=== PATIENT | female | born 1960 | race African-American/Black ===

== ENCOUNTER 2017-01-01 19:04 | Emergency (ER) | payer OTHER ==
[~2017-01-01] VITALS: Ht 170.2 cm; Wt 98.0 kg
[~2017-01-01 19:04] MED LIST: ALDACTONE; COUMADIN 2.5MG2.5 M1 PO; COUMADIN 5 MG TA5 M1 PO; CYCLOBENZAPRINE5 MG PO; EXFORGE; EXFORGE PO; KAPIDEX60 MG PO; METFORMIN; NORCO 5-325 TA1 EACH PO; PATANASE30.5 GM NS; PERCOCET 5-3251 EACH PO; PROVENTIL IH; STARLIX; SYMBICORT160 MCG/4. INH; TRAMADOL 50 MG50 MG PO; ZOFRAN ODT4 MG PO; ZYRTEC10 M1 PO; ZYRTEC10 M2 PO
[2017-01-01] MEDS ORDERED: METFORMIN HCL500 MG PO (19:20)
[2017-01-01 19:34] LABS: ABSOLUTE NEUTROPHILS 5.5 thou/uL (1.4-8.2); BASOPHILS 0.5 % (0.0-2.0); EOSINOPHILS 0.9 % (0.0-3.0); HEMATOCRIT 39.5 % (37.0-47.0); HEMOGLOBIN 12.8 gm/dL (12.0-15.0); LYMPHOCYTES 22.9 % (24.0-44.0); MCH 26.9 pg (26.0-34.0); MCHC 32.5 g/dL (28.0-37.0); MCV 82.7 fL (80.0-100.0); MONOCYTES 5.1 % (1.0-8.0); PLATELET COUNT 222 thou/uL (150-400); POLYS 70.6 % (36.0-66.0); RBC 4.78 mil/uL (4.20-5.00); RDW 14.7 % (10.5-14.5); WBC 7.8 thou/uL (4.0-11.0)
[2017-01-01 19:37] LABS: MANUAL DIFF NO
[2017-01-01 19:49] LABS: CALCIUM 9.2 mg/dL (8.5-10.1); CREATININE 1.6 mg/dL (0.6-1.3); POTASSIUM 3.6 mmol/L (3.5-5.1)
[2017-01-01 19:53] LABS: ALBUMIN 3.6 g/dL (3.4-5.0); TOTAL BILIRUBIN 0.3 mg/dL (<0.1-1.0); TOTAL PROTEIN 7.3 g/dL (6.4-8.2)
[2017-01-01 19:56] LABS: PROTIME 30.8 Seconds (9.3-11.4)
[2017-01-01] MEDS ORDERED: COMPAZINE10 MG PO (21:49)
[2017-01-01 22:02] VITALS: BP 114/65
== END 2017-01-01 22:04 | disposition home or self-care (01) ==
LOC: ER 19:04
PROVIDERS: Emergency Medicine
DX: K52.89 Other specified noninfective gastroenteritis and colitis (principal); E86.0 Dehydration; I10 Essential (primary) hypertension; Z90.49 Acquired absence of other specified parts of digestive tract; E11.9 Type 2 diabetes mellitus without complications; K21.9 Gastro-esophageal reflux disease without esophagitis; M10.9 Gout, unspecified; Z91.018 Allergy to other foods; Z88.2 Allergy status to sulfonamides; F10.99 Alcohol use, unspecified with unspecified alcohol-induced disorder

== ENCOUNTER 2017-01-04 04:11 | Inpatient (IN) | payer OTHER ==
[~2017-01-04] VITALS: Ht 172.7 cm; Wt 98.0 kg
[2017-01-04] VITALS (7 sets, daily range): BP systolic 109–144; BP diastolic 61–83
[~2017-01-04 04:11] MED LIST changes: +COMPAZINE10 MG PO; +METFORMIN HCL500 MG PO
[2017-01-04 04:45] LABS: ABSOLUTE NEUTROPHILS 5.1 thou/uL (1.4-8.2); BASOPHILS 0.7 % (0.0-2.0); EOSINOPHILS 0.7 % (0.0-3.0); HEMATOCRIT 37.8 % (37.0-47.0); HEMOGLOBIN 12.4 gm/dL (12.0-15.0); LYMPHOCYTES 22.4 % (24.0-44.0); MCHC 32.9 g/dL (28.0-37.0); MCV 82.1 fL (80.0-100.0); MONOCYTES 6.8 % (1.0-8.0); PLATELET COUNT 224 thou/uL (150-400); POLYS 69.4 % (36.0-66.0); RBC 4.61 mil/uL (4.20-5.00); RDW 14.6 % (10.5-14.5); WBC 7.3 thou/uL (4.0-11.0)
[2017-01-04 04:49] LABS: MANUAL DIFF NO
[2017-01-04 05:02] LABS: POTASSIUM 3.2 mmol/L (3.5-5.1)
[2017-01-04 05:08] LABS: APTT 41.8 Seconds (24.5-32.8); PROTIME 66.2 Seconds (9.3-11.4)
[2017-01-04 05:13] LABS: ALBUMIN 3.4 g/dL (3.4-5.0); CALCIUM 9.2 mg/dL (8.5-10.1); CREATININE 1.4 mg/dL (0.6-1.3); TOTAL BILIRUBIN 0.3 mg/dL (<0.1-1.0); TOTAL PROTEIN 7.2 g/dL (6.4-8.2)
[2017-01-04 05:14] LABS: INR 6.4
[2017-01-04 17:11] LABS: PROTIME 27.4 Seconds (9.3-11.4)
[2017-01-04 17:16] LABS: INR 2.6
[2017-01-05 04:00] VITALS: BP 133/82
[2017-01-05 06:47] LABS: INR 2.2; PROTIME 23.3 Seconds (9.3-11.4)
[2017-01-05 06:54] LABS: ALBUMIN 3.1 g/dL (3.4-5.0); CALCIUM 8.6 mg/dL (8.5-10.1); CREATININE 1.2 mg/dL (0.6-1.0); MAGNESIUM 1.5 mg/dL (1.8-2.4); POTASSIUM 3.5 mmol/L (3.5-5.1); TOTAL BILIRUBIN 0.3 mg/dL (<0.1-1.0); TOTAL PROTEIN 6.4 g/dL (6.4-8.2)
[2017-01-05 07:36] VITALS: BP 109/68
[2017-01-05 12:12] VITALS: BP 120/75
[2017-01-05 15:23] VITALS: BP 127/82
[2017-01-05 21:30] VITALS: BP 120/68
[2017-01-06 04:30] VITALS: BP 130/72
[2017-01-06 05:24] LABS: HEMATOCRIT 33.6 % (37.0-47.0); MCH 26.9 pg (26.0-34.0); MCHC 32.7 g/dL (28.0-37.0); MCV 82.2 fL (80.0-100.0); RBC 4.09 mil/uL (4.20-5.00); RDW 14.6 % (10.5-14.5); WBC 9.9 thou/uL (4.0-11.0)
[2017-01-06 05:47] LABS: CALCIUM 8.5 mg/dL (8.5-10.1); CREATININE 1.1 mg/dL (0.6-1.0); MAGNESIUM 1.3 mg/dL (1.8-2.4); POTASSIUM 3.3 mmol/L (3.5-5.1)
[2017-01-06 14:12] LABS: INR 1.5; PROTIME 15.3 Seconds (9.3-11.4)
[2017-01-06 16:23] VITALS: BP 124/70
[2017-01-06 20:00] VITALS: BP 129/78
[2017-01-07 04:00] VITALS: BP 126/82; BP 135/80
[2017-01-07 06:11] LABS: INR 1.2; PROTIME 12.4 Seconds (9.3-11.4)
[2017-01-07 07:38] VITALS: BP 126/83
[2017-01-07 15:59] VITALS: BP 129/79
[2017-01-07 20:00] VITALS: BP 121/76
[2017-01-08 06:21] LABS: INR 1.1; PROTIME 11.3 Seconds (9.3-11.4)
[2017-01-08 07:14] VITALS: BP 136/81
[2017-01-08 16:37] VITALS: BP 149/88
== END 2017-01-09 02:12 | disposition short-term general hospital (02) | DRG 65 ==
LOC: ER 04:11 → 4E 05:31 → EROBS 05:31 → 4E 07:40
PROVIDERS: Emergency Medicine; Hospitalist; Internal Medicine; Nurse Practitioner
DX: I62.00 Nontraumatic subdural hemorrhage, unspecified (principal); G81.94 Hemiplegia, unspecified affecting left nondominant side; N17.9 Acute kidney failure, unspecified; A08.4 Viral intestinal infection, unspecified; G43.909 Migraine, unspecified, not intractable, without status migrainosus; I10 Essential (primary) hypertension; E11.9 Type 2 diabetes mellitus without complications; K21.9 Gastro-esophageal reflux disease without esophagitis; M10.9 Gout, unspecified; E87.6 Hypokalemia; Z86.711 Personal history of pulmonary embolism; Z90.49 Acquired absence of other specified parts of digestive tract; Z88.2 Allergy status to sulfonamides; Z91.018 Allergy to other foods; Z82.49 Family history of ischemic heart disease and other diseases of the circulatory system; Z83.3 Family history of diabetes mellitus
CPT/HCPCS: 10183

== ENCOUNTER → 2017-08-16 | Outpatient (CLI) | payer OTHER ==
--- NOTE | ~2017-08-16 | CNG ---
[facility] [place] [address] CYTO-NONGYN REPORT PROCEDURE Name: GILDA STORY Room #: REG [facility].#: [id number] Admission: 08/16/17 Date of : 56 Discharge: Report #: [id number] Path Case #: [id number] CYTOPATHOLOGY REPORT COLLECTION DATE: 08/16/2017 RECEIVED DATE: 08/16/2017 SUBMITTING PHYS: Dr. Irving Newman OTHER PHYS: Dr. Antonina Cortes CLINICAL HISTORY: Left thyroid nodule. SPECIMEN(S) RECEIVED: A.US guided Fine needle aspiration, Left thyroid nodule * * * * * * * * * * * * FINAL DIAGNOSIS: A. Thyroid, Left thyroid nodule, US guided Fine needle aspiration: BETHESDA CATEGORY II. SPECIMEN CONSISTS OF FOLLICULAR CELLS, FEW WITH HURTHLE CELL CHANGE, ABUNDANT HEMOSIDERIN-LADEN MACROPHAGES, COLLOID, AND BLOOD, FAVOR ADENOMATOID NODULE. COMMENT: Examination shows a mixed follicular architecture with Hurthle cell change in a few, macrophages as well as watery colloid. Nuclear features of papillary thyroid carcinoma are not identified. Based on the morphology, an adenomatoid nodule is favored. The differential diagnosis includes a mixed macro-micro follicular adenoma. Nature of the sample precludes evaluation for a follicular carcinoma. Sample represents a minute portion of a larger lesion and may have sampling bias. Clinical correlation is suggested. (IUV; 08/17/17) PATHOLOGIST: Claudia Nguyen M.D. REPORT ELECTRONICALLY SIGNED BY: Claudia Nguyen M.D. DATE/TIME: 08/17/2017 15:55 * * * * * * * * * * * * GROSS PATHOLOGY: A. US guided Fine needle aspiration, Left thyroid nodule: The specimen is labeled "Gilda Story" and consists of three fixed slides, three air dried slides. Twenty-five mL of red fluid in fixative from the needle rinse is also submitted and one ThinPrep slide was prepared. Twenty mL of clear colorless fluid in formalin was also received and a formalin fixed cell block was prepared from this material. (clt 08.16.2017) Also received is the RNARetain vial which will be held for molecular studies if needed. [address] [address] CYTO-NONGYN REPORT PROCEDURE Name: GILDA STORY [id number] Admission: 08/16/17 Date of : 56 Discharge: Report #: [id number] Path Case #: [id number] DIGITAL PRODUCT SPECIALIST(S): FREYA Priest(ASCP) INITIAL CPT CODE(S): A; 26437, 70359 Professional services performed by [facility] at [address] , [place] [address] Technical services performed by [facility] at [address] [place] [address]., [address], [place] [address]. [facility], [address] [place] [address] PHONE: [phone] DIRECTOR: Shay Cota M.D. * * * END OF REPORT * * *
== END | disposition home or self-care (01) ==
LOC: ULTRA 08:30
DX: E04.2 Nontoxic multinodular goiter (principal)

== ENCOUNTER → 2017-12-23 | Outpatient (CLI) | payer OTHER ==
[~2017-12-23] MED LIST changes: +SENNA8.6 MG PO
== END ==
LOC: RAD 11:46
DX: Z12.31 Encounter for screening mammogram for malignant neoplasm of breast (principal)

== ENCOUNTER 2018-04-27 17:21 | Emergency (ER) | payer OTHER ==
[~2018-04-27] VITALS: Ht 172.7 cm; Wt 85.3 kg
[~2018-04-27 17:21] MED LIST changes: -SENNA8.6 MG PO
[2018-04-27 17:52] VITALS: BP 149/81
[2018-04-27] MEDS ORDERED: SENNA8.6 MG PO (19:23)
[2018-04-27] MEDS ORDERED: NORCO 5-325 TA1 EACH PO (19:23)
== END 2018-04-27 19:42 | disposition home or self-care (01) ==
LOC: ER 17:21
DX: S52.501A Unspecified fracture of the lower end of right radius, initial encounter for closed fracture (principal); S62.011A Displaced fracture of distal pole of navicular [scaphoid] bone of right wrist, initial encounter for closed fracture; W01.0XXA Fall on same level from slipping, tripping and stumbling without subsequent striking against object, initial encounter; Y93.89 Activity, other specified; Y92.89 Other specified places as the place of occurrence of the external cause; Y99.8 Other external cause status; I10 Essential (primary) hypertension; E11.9 Type 2 diabetes mellitus without complications; M10.9 Gout, unspecified; K21.9 Gastro-esophageal reflux disease without esophagitis; Z90.49 Acquired absence of other specified parts of digestive tract; Z88.2 Allergy status to sulfonamides; Z91.02 Food additives allergy status

== ENCOUNTER → 2019-05-01 | Outpatient (CLI) | payer OTHER ==
[~2019-05-01] MED LIST changes: +SENNA8.6 MG PO
== END ==
LOC: BC 12:12
DX: Z12.31 Encounter for screening mammogram for malignant neoplasm of breast (principal)

== ENCOUNTER → 2020-05-29 | Outpatient (CLI) | payer OTHER | LOC: BC 13:50 | PROVIDERS: ATTEND Internal Medicine | DX: Z12.31 Encounter for screening mammogram for malignant neoplasm of breast (principal) ==

== ENCOUNTER 2021-05-06 01:32 | Inpatient (IN) | payer BC ==
[~2021-05-06] VITALS: Ht 175.3 cm; Wt 91.6 kg
[2021-05-06] VITALS (7 sets, daily range): BP systolic 108–129; BP diastolic 49–70
[2021-05-06] MEDS ORDERED: AMLODIPINE-VAL1 EAC3 PO (02:02)
[2021-05-06] MEDS ORDERED: HYDROCHLOROTH12.5 M2 PO (02:02)
[2021-05-06] MEDS ORDERED: OZEMPIC0.25 MG/0. SUBQ (02:03)
[2021-05-06] MEDS ORDERED: METFORMIN HCL500 M3 PO (02:04)
[2021-05-06] MEDS ORDERED: JANTOVEN3 MG PO (02:05)
[2021-05-06 02:38] LABS: ABSOLUTE NEUTROPHILS 9.8 thou/uL (1.4-8.2); BASOPHILS 0.7 % (0.0-2.0); EOSINOPHILS 0.1 % (0.0-3.0); HEMOGLOBIN 11.1 gm/dL (12.0-15.0); LYMPHOCYTES 22.8 % (24.0-44.0); MCHC 31.7 g/dL (28.0-37.0); MCV 85.2 fL (80.0-100.0); MONOCYTES 5.4 % (1.0-8.0); PLATELET COUNT 229 thou/uL (150-400); RBC 4.11 mil/uL (4.20-5.00); RDW 14.7 % (10.5-14.5); WBC 13.7 thou/uL (4.0-11.0)
[2021-05-06 02:41] LABS: ANION GAP 24 mmol/L (7-16); BUN 54 mg/dL (7-18); CALCIUM 9.2 mg/dL (8.5-10.1); CHLORIDE 99 mmol/L (98-107); CO2 16 mmol/L (21-32); CREATININE 6.7 mg/dL (0.6-1.0); GLUCOSE 163 mg/dL (74-106); POTASSIUM 4.9 mmol/L (3.5-5.1); SODIUM 139 mmol/L (136-145)
[2021-05-06 02:54] LABS: ALBUMIN 3.4 g/dL (3.4-5.0); DIRECT BILIRUBIN 0.4 mg/dL (<0.1-0.2); LIPASE 266 U/L (73-393); TOTAL BILIRUBIN 0.8 mg/dL (0.2-1.0); TOTAL PROTEIN 7.6 g/dL (6.4-8.2); TROPONIN-I <0.06 ng/mL (<0.06)
[2021-05-06 04:49] LABS: APTT 38.4 Seconds (24.5-32.8); INR 3.73; PROTIME 38.2 Seconds (10.5-12.1)
[2021-05-06 05:53] LABS: URINE BILIRUBIN NEGATIVE (Negative); URINE BLOOD 1+ (Negative); URINE CLARITY SL CLOUDY; URINE COLOR YELLOW; URINE GLUCOSE-RANDOM* 2+ (Negative); URINE KETONES 1+ (Negative); URINE LEUKOCYTES-REFLEX NEGATIVE (Negative); URINE NITRITE-REFLEX NEGATIVE (Negative); URINE PROTEIN (DIPSTICK) 2+ (Negative); URINE SPECIFIC GRAVITY 1.025 (1.005-1.035); URINE UROBILINOGEN 0.2 E.U./dl (0.2-1.0)
[2021-05-06 06:06] LABS: CALCIUM 8.9 mg/dL (8.5-10.1); CREATININE 6.5 mg/dL (0.6-1.0); PHOSPHORUS 7.3 mg/dL (2.5-4.9); POTASSIUM 4.9 mmol/L (3.5-5.1)
[2021-05-06 06:08] LABS: CASTS None Seen /LPF (None Seen); SQUAMOUS 0-3 Few /LPF (0-3)
[2021-05-06 06:09] LABS: CHOLESTEROL 89 mg/dL (<200); HDL CHOLESTEROL 30 mg/dL (>40); LDL CHOLESTEROL 15 mg/dL (<100); TRIGLYCERIDE 223 mg/dL (<150); VLDL 45 mg/dL (<40)
[2021-05-06 06:09] LABS: AMORPHOUS URATES Moderate /LPF (None Seen); URINE RBC 1-2 Rare /HPF (NONE SEEN); URINE WBC-REFLEX 0-5 Rare /HPF (0-5)
[2021-05-06 06:11] LABS: SERUM ASSESSMENT Clear
--- NOTE | 2021-05-06 07:49 | EKG ---
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: malick : 1960 Requested By: Sonia Munoz Order Number: [id number] MD: Stephen Duarte Measurements Intervals Mystic Rate: 100 P: 33 OR: 124 QRS: 13 QRSD: 85 T: 86 QT: 379 QTc: 489 Interpretive Statements Sinus tachycardia RSR' in V1 or V2, right VCD or RVH Borderline prolonged QT interval Compared to ECG 04/03/2015 15:55:45 RSR' in V1 or V2 now present Sinus rhythm no longer present ST (T wave) deviation no longer present Electronically Signed On 05-06-2021 7:49:30 CDT by Stephen Duarte [email or web address] <ELECTRONICALLY SIGNED> By: Stephen Duarte MD, FAC 05/06/21 0749 0254 [id number] Stephen Duarte MD, [facility] /EPI
--- NOTE | 2021-05-06 09:43 | NUR ---
dr freedman on floor when critical lab value called
[2021-05-06 11:12] LABS: ALBUMIN 2.7 g/dL (3.4-5.0); DIRECT BILIRUBIN 0.5 mg/dL (<0.1-0.2); TOTAL BILIRUBIN 0.9 mg/dL (0.2-1.0); TOTAL PROTEIN 6.1 g/dL (6.4-8.2)
--- NOTE | 2021-05-06 11:19 | NUR ---
MESSAGED DR MAST RE: LACTIC ACID VALUE 4.7
--- NOTE | 2021-05-06 17:04 | NUR ---
PER DR GUPTA, PT TO REMAIN ON SODIUM BICARB AT 80MLS/HR UNTIL MORNING LABS ARE DRAWN. PLEASE UPDATE PHYSICIAN OIL HEATERMAN IF RESULTS CRITICAL.
[2021-05-07 01:24] LABS: GLYCOHEMOGLOBIN (HGB A1C) 7.6 % (4.8-5.6)
[2021-05-07 04:45] VITALS: BP 129/77
[2021-05-07 05:47] LABS: HEMATOCRIT 30.6 % (37.0-47.0); HEMOGLOBIN 10.1 gm/dL (12.0-15.0); MCH 27.6 pg (26.0-34.0); MCHC 32.9 g/dL (28.0-37.0); RBC 3.64 mil/uL (4.20-5.00); RDW 14.6 % (10.5-14.5); WBC 6.6 thou/uL (4.0-11.0)
--- NOTE | 2021-05-07 05:48 | NUR ---
Pt. stated she slept fair during the night. Denies any pain. No nausea or vomiting. Up with SBA to commode. She reported dizziness when getting up which she said she has vertigo.Kept NPO per order. IV fluids infusing.
[2021-05-07 06:10] LABS: PROTIME 85.9 Seconds (10.5-12.1)
[2021-05-07 06:24] LABS: ALBUMIN 2.6 g/dL (3.4-5.0); DIRECT BILIRUBIN 0.7 mg/dL (<0.1-0.2); PHOSPHORUS 3.1 mg/dL (2.5-4.9); TOTAL PROTEIN 5.4 g/dL (6.4-8.2)
[2021-05-07 06:27] LABS: INR 8.74
[2021-05-07 06:35] LABS: CREATININE 7.9 mg/dL (0.6-1.0); POTASSIUM 3.3 mmol/L (3.5-5.1)
--- NOTE | 2021-05-07 06:38 | NUR ---
Critical INR of 8.7 reported to Rodo Lord NP. No active signs of bleeding. Order received for Vit. K SQ x1,
[2021-05-07 07:26] VITALS: BP 128/69
--- NOTE | 2021-05-07 08:25 | NUR ---
Assess due to RD consult received. Admit with n/v/d for several weeks, lactic acidosis, acute renal failure possibly reaction from new medication that was started. Also has significant elevated LFT, followed by GI and workup in progress. Held NPO. Nutrition screening risk indicated severe wt loss 24-33 lb range. Nabicarb administration with renal managing fluids. Wts trending back up 4 lb. Will followup again in 1-2 days for timely diet advance and tolerance to oral intake, initiate any appropriate nutrition interventions.
[2021-05-07 10:08] LABS: HAV IgM AB (ANTI-HAV IgM) Negative (Negative); HEPATITIS B SURFACE AG Negative (Negative); HEPATITIS C VIRUS AB 0.2 (0.0-0.9)
--- NOTE | 2021-05-07 11:05 | NUR ---
INITIAL ASSESSMENT: SW reviewed chart and spoke with nursing and attending physician. Pt was admitted from home due to acute renal failure/vomiting/weakness. Pt with elevated LFTs and INR. Pt is on IV abx. Pt has been vaccinated for COVID. SW spoke with pt via phone. Introduced role of SW. Pt is alert/orientated x 4. Pt reports she lives alone in an apt. Pt has several steps to get into her apt and then no steps inside. Prior to admission, pt was independent with ADLS. Pt states lately she has been weak and has been using furniture for balance. Pt's dtr lives within the same apt complex and is available to assist as needed. Pt's son and dtr-in-law are also involved and able to assist as needed. No hx of services or post-acute placement. Pt's PCP is Dr. Antonina Cortes. Pt to be transferred off 3W when a bed becomes available on another unit. SW is following to assist as needed with discharge planning.
[2021-05-07 15:08] VITALS: BP 132/84
--- NOTE | 2021-05-07 19:53 | NUR ---
DAY SHIFT REVIEW: PT HAS POOR URINE OUTPUT. 300ML FOR DAY. PT STATES HER N/V IS COMPLETELY GONE. WAS ABLE TO ADVANCE DIET TO CLEARS W/O COMPLAINTS OR ISSUE. PT USES CALL LIGHT APPROPRIATELY, NO OTHER CONCERNS OR COMPLAINTS DURING SHIFT.
[2021-05-07 20:06] LABS: IgA 308 mg/dL (87-352); IgG 915 mg/dL (586-1602); IgM 38 mg/dL (26-217)
[2021-05-07 20:20] VITALS: BP 137/81
[2021-05-08 05:00] VITALS: BP 125/67
[2021-05-08 06:25] LABS: ALBUMIN 2.6 g/dL (3.4-5.0); CREATININE 9.7 mg/dL (0.6-1.0); PHOSPHORUS 2.6 mg/dL (2.5-4.9); POTASSIUM 3.8 mmol/L (3.5-5.1)
--- NOTE | 2021-05-08 07:30 | NUR ---
PROGRESS PT A/OX 4 UP WITH SBA D/T EQUIPMENT. NAUSEA REMAINS AND PT TAKING ZOFRAN PRN WITH SOME EFFECT. ACIDOSIS DX AND SODIUM BICARB INFUSING ORDERED. ACCUCHECKS AND SSI CONTINUE.
[2021-05-08 07:43] VITALS: BP 144/92
[2021-05-08 08:14] LABS: INR 1.4
[2021-05-08 08:25] LABS: ALBUMIN 2.8 g/dL (3.4-5.0); DIRECT BILIRUBIN 1.1 mg/dL (<0.1-0.2); TOTAL BILIRUBIN 1.6 mg/dL (0.2-1.0); TOTAL PROTEIN 5.4 g/dL (6.4-8.2)
[2021-05-08 11:30] VITALS: BP 137/85
[2021-05-08 14:07] LABS: COMPLEMENT-C3 83 mg/dL (82-167); COMPLEMENT-C4 19 mg/dL (12-38)
--- NOTE | 2021-05-08 14:57 | NUR ---
SW reviewed chart and spoke with nursing and attending physician. Pt is on IV abx. Pt's diet is slowly being advanced. Pt to have kidney bx tomorrow. Pt to transfere off of 3W when a bed becomes available on another unit. [facility] is following to assist as needed with discharge planning.
[2021-05-08 15:37] VITALS: BP 135/88
[2021-05-08 19:07] LABS: GLOBULIN TOTAL 2.4 g/dL (2.2-3.9); M-SPIKE Not Observed g/dL (Not Observed)
[2021-05-08 20:00] VITALS: BP 140/80
[2021-05-09 00:44] VITALS: BP 139/85
[2021-05-09 03:16] LABS: ALBUMIN 2.4 g/dL (3.4-5.0); CALCIUM 7.8 mg/dL (8.5-10.1); CREATININE 10.8 mg/dL (0.6-1.0); PHOSPHORUS 2.5 mg/dL (2.6-4.7); POTASSIUM 3.6 mmol/L (3.5-5.1)
--- NOTE | 2021-05-09 07:19 | NUR ---
progress pt a/o x4 up with sba to bsc. voiding in moderate quantities, had one small emesis and nausea relieved with zofran. lab values still unstable but ivf's infusing awaiting send out labs is following closely. did not sleep well expressed desire to transfer off unit so she could have visitors.
[2021-05-09 07:32] VITALS: BP 141/86
[2021-05-09 09:08] LABS: KAPPA FREE LIGHT CHAINS 131.2 mg/L (3.3-19.4); KAPPA/LAMBDA RATIO 1.69 (0.26-1.65); LAMBDA FREE LIGHT CHAINS 77.6 mg/L (5.7-26.3)
[2021-05-09 10:08] LABS: ANA INTERPRETATION Negative (Negative)
[2021-05-09 11:51] VITALS: BP 141/88
--- NOTE | 2021-05-09 14:15 | NUR ---
SW reviewed chart and spoke with nursing and attending physician. Pt remains on IV abx. LFTs and INR checked daily. No weekend discharge planned. Pt to transfer off of 3W when a bed becomes available. [facility] is following to assist as needed with discharge planning.
[2021-05-09 14:20] VITALS: BP 152/95
--- NOTE | 2021-05-09 15:29 | NUR ---
Pt transfered from 3W this afternoon. Pt remains on IV abx. LFTs and INR checked daily. No weekend discharge planned. SW is following to assist as needed with discharge planning.
--- NOTE | 2021-05-09 17:02 | NUR ---
PT RECEIVED IN TRANSFER TO [facility] ALERT AND IN NO DISTRESS. PT STATES SHE'S FEELING BETTER BUT STILL HAVING SOME INTERMITTENT NAUSEA. ABLE TO EAT SOME SM AMTS. NO C/O PAIN. URINE OUTPUT GOOD.
[2021-05-09 19:53] VITALS: BP 140/85
--- NOTE | 2021-05-10 04:46 | NUR ---
patient aox4 makes needs known. patient denied nausea/ vomit.fall precaution in place d/t hx. of sycopy. . patient in bed asleep at this time breathing regular and unlaboured.
[2021-05-10 06:43] LABS: CALCIUM 8.2 mg/dL (8.5-10.1); POTASSIUM 3.6 mmol/L (3.5-5.1)
[2021-05-10 06:44] LABS: CREATININE 11.9 mg/dL (0.6-1.0)
[2021-05-10 06:47] LABS: ALBUMIN 2.4 g/dL (3.4-5.0); PHOSPHORUS 3.4 mg/dL (2.6-4.7)
[2021-05-10 07:15] VITALS: BP 150/94
--- NOTE | 2021-05-10 14:55 | NUR ---
PT IS A&O*4, ROOM AIR, NO PAIN, GET UP BY JASON. AQ CHECK AND NSR ON TELE. WILL FOLLOW ORDERS AND MONITOR LAB VALUES.
[2021-05-10 15:36] VITALS: BP 144/92
[2021-05-10 19:21] VITALS: BP 142/96
--- NOTE | 2021-05-11 03:51 | NUR ---
patient had emesis x1. patient refused nausea medicine. patient denied pain or discomfort.patient uses bedside commode. fall precaution in place. patient in bed asleep at this time breathing regular and unlaboured.
[2021-05-11 06:14] LABS: ALBUMIN 2.3 g/dL (3.4-5.0); CALCIUM 7.9 mg/dL (8.5-10.1); CREATININE 12.5 mg/dL (0.6-1.0); MAGNESIUM 1.5 mg/dL (1.8-2.4); POTASSIUM 3.5 mmol/L (3.5-5.1); TOTAL BILIRUBIN 0.6 mg/dL (0.2-1.0); TOTAL PROTEIN 5.2 g/dL (6.4-8.2)
--- NOTE | 2021-05-11 13:27 | NUR ---
Pt is AXOX4. Pt is in active liver failure with AST of 111 and ALT of 547.Dr Gutierrez ordered a consult with Dr. Newman and IR for a kidney biopsy and temporary Dialysis Cath. BUN of 49 and Creat of 49. Pt is a ACHS with a 169 for breakfast and a 175 at lunch. She has +1 pitting edema on BLE. She remains on RA. Lungs are clear bowels sounds are hypoactive. Last BM was 05/08/21. She has an IV running in right foream arm running at 80ml/hour along with AXB. Running NS on tele. Fall precautions in place. Call light within reach. Will monitor until end of shift.
[2021-05-11 13:39] LABS: PROT/CREAT RATIO 1.9; URINE CREATININE-RANDOM* 23.3 mg/dL; URINE PROTEIN-RANDOM* 43.6 mg/dL (<11.9)
[2021-05-11 19:04] VITALS: BP 140/87
--- NOTE | 2021-05-12 02:35 | NUR ---
PT CARE ASSUMED WITH PT IN BED WATCHING TV AT 1900.PT IS A/O X4.PT IS UP TO BSC STANDBY ASSIST.PT IS STRICT I AND O.PT IS ACCUCHECK ACHS.PT NPO FROM MIDNIGHT FOR KIDNEY BIOPSY TODAY.IV ACCESS IN RT AC WITH 0.45NS AT 80CC/HR.WILL CONTINUE TO MONITOR PER POC
[2021-05-12 04:04] VITALS: BP 146/86
[2021-05-12 05:25] LABS: HEMATOCRIT 26.5 % (37.0-47.0); HEMOGLOBIN 8.9 gm/dL (12.0-15.0); MCH 27.8 pg (26.0-34.0); MCHC 33.5 g/dL (28.0-37.0); MCV 82.8 fL (80.0-100.0); RBC 3.2 mil/uL (4.20-5.00); RDW 15.1 % (10.5-14.5); WBC 7.5 thou/uL (4.0-11.0)
[2021-05-12 05:55] LABS: ALBUMIN 2.2 g/dL (3.4-5.0); CALCIUM 8.5 mg/dL (8.5-10.1); MAGNESIUM 1.6 mg/dL (1.8-2.4); POTASSIUM 3.5 mmol/L (3.5-5.1); TOTAL BILIRUBIN 0.5 mg/dL (0.2-1.0); TOTAL PROTEIN 5.6 g/dL (6.4-8.2)
[2021-05-12 05:57] LABS: CREATININE 13.6 mg/dL (0.6-1.0)
[2021-05-12 06:57] VITALS: BP 159/88
--- NOTE | 2021-05-12 11:51 | NUR ---
PT IS TO HAVE KIDNEY BIOPSY AND TEMP DIALYSIS CATHETER PLACE TODAY. CM FOLLOWING REGARDING DC PLANNING.
--- NOTE | 2021-05-12 13:03 | NUR ---
Patient was found on the floor at 1220. Patient denied pain and had no open lesions or new wounds noted. All limbs were intact without deformity. Patient denied pain. Vitals were stable; no new findings were discovered upon post fall reassessment. Provider was paged and spoken to; no new orders except to watch patient closely. Patient was checked on approx. 15 minutes prior to fall for incontinence; bed light was green. Bed was re-zeroed prior to getting patient back in bed. Frequent monitoring reinforced on patient. Post fall assessment due at 1320
[2021-05-12 16:39] VITALS: BP 156/95
--- NOTE | 2021-05-12 19:27 | NUR ---
PATIENT ALERT AND ORINTED X4, ON ROOM AIR, SBA, VITAL SIGNS STABLE, AND AFBREILE. CALL LIGHT WITH IN REACH, WILL CONTINUE TO MONITOR.
[2021-05-12 20:30] VITALS: BP 151/91
--- NOTE | 2021-05-13 02:11 | NUR ---
PT CARE ASSUMED WITH PT IN BED WATCHING TV.PT IS A/O X4.PT IS UP WITH STANDBY ASSIST TO THE BSC.PT IS ACCUCHECK ACHS AND NPO FROM MIDNIGHT FOR KIDNEY BIOPSY AND TEMPORARY DIALYSIS ACCESS.IV ACCESS IN RT AC WITH D5 0.45NS AT 80CC/HR.PT C/O NAUSEA AND MANAGED WITH PRN COMPAZINE.WILL CONTINUE TO MONITOR
[2021-05-13 05:54] LABS: HEMATOCRIT 27.5 % (37.0-47.0); HEMOGLOBIN 9.2 gm/dL (12.0-15.0); MCH 27.8 pg (26.0-34.0); MCHC 33.6 g/dL (28.0-37.0); MCV 82.9 fL (80.0-100.0); RBC 3.32 mil/uL (4.20-5.00); RDW 15.2 % (10.5-14.5); WBC 7.9 thou/uL (4.0-11.0)
[2021-05-13 06:24] LABS: ALBUMIN 2.4 g/dL (3.4-5.0); CALCIUM 8.6 mg/dL (8.5-10.1); CREATININE 13.6 mg/dL (0.6-1.0); MAGNESIUM 1.7 mg/dL (1.8-2.4); POTASSIUM 3.5 mmol/L (3.5-5.1); TOTAL BILIRUBIN 0.5 mg/dL (0.2-1.0); TOTAL PROTEIN 6.2 g/dL (6.4-8.2)
[2021-05-13 07:25] VITALS: BP 162/92
[2021-05-13 13:06] VITALS: BP 160/107
[2021-05-13 15:30] VITALS: BP 137/97
--- NOTE | 2021-05-13 18:21 | NUR ---
PT IS A&O*4, GET UP BY JASON, SINUS TACHY HR AROUND 140 AFTER CAME BACK FROM BIOPASY, NOTIFED . BLOOD AND BLOOD CLOT COME OUT WHEN PT TIY TO E, NOTIFIED . PT WAS NPO IN THE MORNING AND HAD BAD NAUSEA AFTER CAME BACK FROM KIDNEY BIOPASY AND TEMP KIDNEY TUBE PLACEMENT, THROUGH UP COUPLE TIMES. 8 MG IV ZOFRAN GIVEN IN PACU AND NONE GIVEN AFTER BACK TO FLOOR. WILL KEEP MONITOR PT' SAFETY AND VITAL SIGNS.
[2021-05-13 20:00] VITALS: BP 143/80
[2021-05-14 00:52] LABS: HEMATOCRIT 24.7 % (37.0-47.0); HEMOGLOBIN 8.2 gm/dL (12.0-15.0); MCH 27.7 pg (26.0-34.0); MCHC 33.3 g/dL (28.0-37.0); MCV 83.1 fL (80.0-100.0); RBC 2.97 mil/uL (4.20-5.00); RDW 15.4 % (10.5-14.5); WBC 12.8 thou/uL (4.0-11.0)
[2021-05-14 01:17] LABS: ALBUMIN 2.6 g/dL (3.4-5.0); CALCIUM 8.7 mg/dL (8.5-10.1); CREATININE 13.4 mg/dL (0.6-1.0); MAGNESIUM 1.5 mg/dL (1.8-2.4); POTASSIUM 3.2 mmol/L (3.5-5.1); TOTAL BILIRUBIN 0.5 mg/dL (0.2-1.0); TOTAL PROTEIN 6.4 g/dL (6.4-8.2)
[2021-05-14 07:49] VITALS: BP 157/90
--- NOTE | 2021-05-14 12:43 | NUR ---
PT HAD TEMP DIALYSIS CATHETER PLACED YESTERDAY AND KIDNEY BIOPSY DONE. AWAITING RESULTS. DIALYSIS HASN'T BEEN INITIATED OF YET. CM FOLLOWING REGARDING DC PLANNING.
--- NOTE | 2021-05-14 15:40 | NUR ---
ASSUMED CARE OF PATIENT AT SHIFT CHANGE. ASSESSMENT CHARTED. MEDICATIONS ADMINISTERED. PATIENT IS A&OX4 AND ABLE TO MAKE NEEDS KNOWN. NEW INCONTINENCE THIS SHIFT, POSSIBLY DUE TO BIOPSY. PATIENT HAD BLOODY URINE THAT TURNED YELLOW AT APPROX 1400. RENAL FX ARE NOT WORSENING BUT PORT A CATH IS IN PLACE IN CASE NEEDING DIALYIS. FSBS STABLE, DENIYING PAIN. NO OTHER COMPLAINTS THIS SHIFT. CONTINUING TO MONITOR & FOLLOW PLAN OF CARE
--- NOTE | 2021-05-14 15:58 | NUR ---
THIS RN AGREES WITH THE HOUSEKEEPING AIDE ASSESSMENT.
--- NOTE | 2021-05-14 15:58 | NUR ---
THIS RN AGREES WITH THE PELLETIZER OPERATOR ASSESSMENT.
[2021-05-14 16:30] VITALS: BP 149/88
[2021-05-14 20:48] VITALS: BP 147/97
[2021-05-15 03:57] LABS: ALBUMIN 2.6 g/dL (3.4-5.0); CALCIUM 8.5 mg/dL (8.5-10.1); CREATININE 13.3 mg/dL (0.6-1.0); PHOSPHORUS 4.5 mg/dL (2.5-4.9); POTASSIUM 3.8 mmol/L (3.5-5.1)
--- NOTE | 2021-05-15 04:27 | NUR ---
patient continent this shift. patient is able to transfer herself from the bed to the commode. patient urine is yellow in color. no nausea or vomit this shift. patient is tachy with activitied. patient is stand by assist this shift. fall precaution in place. patient in bed asleep at this time breathing regular and unlaboured.
[2021-05-15 08:31] VITALS: BP 146/73
[2021-05-15 10:54] VITALS: BP 137/77
--- NOTE | 2021-05-15 12:11 | NUR ---
CARE TEAM INDICATED THAT THEY HAVEN'T INITIATED TEMP DIALYSIS OF THIS NOTE. CM FOLLOWING REGARDING DC PLANNING.
--- NOTE | 2021-05-15 17:08 | NUR ---
ASSUMED CARE OF PATIENT AT SHIFT CHANGE. ASSESSMENT CHARTED. MEDICATIONS ADMINISTERED PER EMAR. VSS. PATIIENT IS A&OX4 AND ABLE TO MAKE NEEDS
[2021-05-15 17:50] VITALS: BP 181/94
[2021-05-15 20:45] VITALS: BP 144/70
--- NOTE | 2021-05-16 01:23 | NUR ---
PATIENT AOX4 MAKES NEEDS KNOWN. PATIENT STATED<< I FEEL MUCH BETTER>>. NO NAUSEA OR VOMIT THIS SHIFT. PATIENT CONTIENT THIS SHIFT. PATIENT USES BED SIDE COMMODE. CALL LIGHT WITHIN REACH. PATIENT IN BED ASLEEP AT THIS TIME BREATHING REGULAR AND UNLABOURED.
[2021-05-16 06:24] LABS: HEMATOCRIT 23.5 % (37.0-47.0); HEMOGLOBIN 7.6 gm/dL (12.0-15.0); MCH 27.3 pg (26.0-34.0); MCHC 32.5 g/dL (28.0-37.0); MCV 83.8 fL (80.0-100.0); RBC 2.8 mil/uL (4.20-5.00); RDW 16.5 % (10.5-14.5)
[2021-05-16 06:46] LABS: CALCIUM 9.1 mg/dL (8.5-10.1); CREATININE 12.4 mg/dL (0.6-1.0); POTASSIUM 3.6 mmol/L (3.5-5.1)
[2021-05-16 06:48] LABS: ALBUMIN 2.6 g/dL (3.4-5.0); DIRECT BILIRUBIN 0.3 mg/dL (<0.1-0.2); TOTAL BILIRUBIN 0.5 mg/dL (0.2-1.0); TOTAL PROTEIN 6.5 g/dL (6.4-8.2)
[2021-05-16 09:03] VITALS: BP 156/79
[2021-05-16 10:33] LABS: ALBUMIN 2.7 g/dL (3.4-5.0); CALCIUM 9.4 mg/dL (8.5-10.1); CREATININE 12.6 mg/dL (0.6-1.0); PHOSPHORUS 5.1 mg/dL (2.6-4.7); POTASSIUM 3.6 mmol/L (3.5-5.1)
--- NOTE | 2021-05-16 11:08 | PATH ---
[facility] [address] [place] [address] PATHOLOGY RPT PROCEDURE Name: GILDA STORY Room #: 449-I ADM IN M.R.#: [id number] Admission: 05/06/21 Date of : 56 Discharge: Report #: [id number] Path Case #: [id number] [facility] Accession Number: [id number] . 01 Material submitted: . kidney - LT KIDNEY BIOPSY. Modifiers: left . 01 Clinical history: . ACUTE RENAL FAILURE, DEHYDRATION, VOMITING . 02 Diagnosis: Special studies report received from [facility], [id number] [place] [address], [place] [address], on case [id number], labeled with their number [id number], dated 05/14/2021. . Specimen submitted: By Matt Redd MD For Kidney, biopsy . DIAGNOSIS: . Acute Tubular Injury with Myoglobin Casts. See Comment. . Diabetic Glomerulopathy, Class IIa. . Comment: The presence of acute tubular injury with scattered myoglobin casts suggests an underlying component of rhabdomyolysis. The patient's history of IgA monoclonal immunoglobulin is noted; however, the biopsy shows no definitive evidence of a monoclonal immunoglobulin-related renal disease. . Chronicity Summary Total Glomeruli- 23 Global Glomerulosclerosis- 11 Segmental Sclerosis- Absent Interstitial Fibrosis- Moderate Tubular Atrophy- Moderate Arterial Intimal Fibrosis- Moderate Arteriolar Hyalinosis- Mild . Reference: Vonnie MACEDO, Carmelina [place], Elvia K, et al. Pathologic classification of diabetic nephropathy. J Am Soc Nephrol. 2010; 21: 556-563. . Clinical History: The patient is a 61-year-old -[place] female with history of diabetes mellitus, hypertension and rheumatoid arthritis, who developed acute kidney injury with metabolic acidosis and hepatic failure with [address] [address] PATHOLOGY RPT PROCEDURE Name: GILDA STORY Raf Room #: 449-I [facility] IN M.R.#: [id number] Admission: 05/06/21 Date of : 56 Discharge: Report #: [id number] Path Case #: [id number] taking metformin. The creatinine is 13.4 mg/dL. Serum albumin is 2.6 g/dL. . Gross Description: Received from [facility] via [facility] are two specimen bottles; one bottle contains formalin and the other contains Niraj's fixative. The bottles are labeled with the patient's name (Gilda Story) and date of (1960). . Received in formalin are three pieces of sargent tissue measuring 1.5 x 0.1 x 0.1 cm (bisected), 2.2 x 0.1 x 0.1 cm (bisected), and 0.9 x 0.1 x 0.1 x 0.1 cm. Two pieces are submitted for electron microscopy and the remainder of the tissue is submitted in its entirety for light microscopy. . Received in Niraj's fixative is one piece of sargent tissue measuring 2.0 x 0.1 x 0.1 cm. The specimen is submitted in its entirety for immunofluorescence microscopy. . Microscopic Description: LIGHT MICROSCOPY: . The renal parenchyma available for light microscopic examination is represented by approximately 40% cortex and 60% medulla. Fifteen glomeruli are present, seven of which are globally sclerotic. The nonsclerotic glomeruli show moderate mesangial matrix expansion without nodule formation. The capillary loops are without holes, spikes or double contours on silver stain. There is no endocapillary hypercellularity, fibrinoid necrosis or cellular crescent formation. Moderate interstitial fibrosis and tubular atrophy is present involving approximately 40-50% of the cortical surface. Additionally, there is moderate interstitial edema. Moderate mixed inflammation is seen within the areas of tubulointerstitial scarring. Mild focal inflammation is seen within the non-0fibrotic interstitium. The tubules are dilated and lined by a markedly attenuated and reactive epithelium with loss of the proximal tubular brush borders. The tubular lumens occasionally show beaded granular and globular pigmented casts. These casts stains positive on a myoglobin and negative on a hemoglobin immunoperoxidase stain. Additionally, there are frequent hyaline protein casts without associated cellular reaction. The arteries show moderate intimal fibrosis. The arterioles show mild hyalinosis. A [place] red stain is negative throughout the renal parenchyma. Exceedingly rare tubular casts are congophilic. These casts show absence of light chain restriction by paraffin immunofluorescence. Two toluidine blue-stained thick sections are prepared and show three glomeruli, one of which is globally sclerotic. . Standard of care requirements for proper analysis of renal biopsies mandates serial sections, and PAS, Fraser silver, trichrome and SMMT stains at multiple levels. PAS stains are used to evaluate various aspects of the glomerular, tubular, and vascular basement membranes. Evelio mcgee [facility] [address] [place] [address] PATHOLOGY RPT PROCEDURE Name: GILDA STORY Room #: 449-I ADM IN M.R.#: [id number] Admission: 05/06/21 Date of : 56 Discharge: Report #: [id number] Path Case #: [id number] stains are used to evaluate thickening, reduplication, "spiking" or "bubbling" of the glomerular basement membrane. Toluidine blue stained sections highlight glomerular basement membranes and demonstrates unusual types of deposits. It also reveals details of tubular epithelial cells and aids in the analysis of vascular lesions. Everardo trichrome stains are used to evaluate interstitial fibrosis and basement membrane deposits. The SMMT stain helps evaluate basement membrane changes, immune deposits and tubulointerstitial scarring. Controls are routinely run on all special stains and are verified for acceptability. A review of the technical quality of routine slides is made before results are reported. . IMMUNOFLUORESCENCE: The sections are stained for IgG, IgM, IgA, C3, C1q, albumin, fibrinogen, and kappa and lambda light chains. The renal parenchyma submitted consists of 50% cortex. Five glomeruli are present for evaluation with three globally sclerotic. All stains are negative in glomeruli. There is no significant extraglomerular staining. [place] and lambda stain equally throughout the tubulointerstitium. Specifically, there is no light chain restriction of basement membranes, proximal tubule protein resorption droplets or tubular casts. . Performance of all immunofluorescence stains are verified for acceptability before results are reported. Internal antigens within the kidney parenchyma serve as positive and negative controls. . ELECTRON MICROSCOPY: Two blocks are prepared. Ultrastructural evaluation of a glomerulus reveals basement membranes that are uniform and mildly thickened. Glomerular capillary loops are patent. No immune-type or heavy/light chain type electron-dense deposits are present along the glomerular basement membranes or within the mesangium. There is moderate epithelial foot process effacement. The tubular basement membranes are wrinkled, thickened and show occasional ill-defined deposits. . Special procedures including immunofluorescence and electron microscopy correlate with the light microscopy findings. . Note: Some of the tests reported here may have been developed and performance characteristics determined by [facility]. They have not been cleared or approved by the U.S. Food and Drug Administration (FDA). The FDA does not require this test to go through premarket FDA review. This test is used for clinical purposes. It should not be regarded as investigational or for research. [facility] is certified under the Clinical Laboratory Improvement Amendments of 1988 (CLIA) as qualified to perform high complexity clinical laboratory testing. . Physician/Physician's office called on 05/14/2021 at 4:12 PM [facility]. [facility] [address] [place] [address] PATHOLOGY RPT PROCEDURE Name: GILDA STORY Room #: 449-I ADM IN M.R.#: [id number] Admission: 05/06/21 Date of : 56 Discharge: Report #: [id number] Path Case #: [id number] . *I have reviewed the clinical history, the pertinent gross findings, all microscopic materials, discussed the case with the clinician when appropriate, and have rendered the final diagnosis. . . Final Diagnosis performed by Guanaco Christian M.D. Electronically signed 05/15/2021 1:17:38 PM . . A complete copy of the report is on file. . Professional and technical services performed by [facility] at [address] [facility], [facility] [address], [place], [address]. . (IUV:amj 05/15/2021) . [facility] 05/15/2021 1607 Local . 02 Electronically signed: . Claudia Nguyen MD, Pathologist NPI- [id number] . 01 Gross description: . The specimen is received in formalin, labeled "Gilda Story, left kidney". Received are three needle cores of pale sargent soft tissue ranging in length from 1.2 to 2.1 cm, with each measuring 0.1 cm in diameter. The specimen is forwarded to an outside laboratory for further processing. . Also received is a container of Niraj's fixative, labeled "Gilda Story, left kidney". Received is a single needle core of pink-sargent tissue measuring 1.7 cm in length by 0.1 cm in diameter. The specimen is forwarded to an outside laboratory for further processing. (CAA; 05/13/2021) QAC/QAC 05/13/2021 1601 Local . 02 Pathologist provided ICD-10: S37.002A . 02 CPT . 596532 Specimen Comment: A courtesy copy of this report has been sent to [phone] Specimen Comment: [id number] Specimen Comment: Report sent to / DR PANDYA Performed at: [address] [address] PATHOLOGY RPT PROCEDURE Name: GILDA STORY Room #: 449-I ADM IN M.R.#: [id number] Admission: 05/06/21 Date of : 56 Discharge: Report #: [id number] Path Case #: [id number] [address], [place], [place] [id number] MD Andrae Gutierrez MD Phone: [phone] Performed at: [address], [place], [place] [id number] MD Claudia Nguyen MD Phone: [phone]
--- NOTE | 2021-05-16 13:25 | NUR ---
PT IS A&O*4, ROOM AIR, GET UP BY JASON, NO PAIN OR [place] REPORT. PT WORKED WITH PT, OT AND PLAN TO DC TO REHAB. NSR/SINUS TACHY ON TELE HR AROUND 95. AQSH AND INSULIN GIVEN PER ORDER.
--- NOTE | 2021-05-16 14:32 | NUR ---
CARE TEAM INDICATED THAT PT IS NEARING MEDICAL STABLILITY BUT IS NEEDING SOME REHAB EITHER SKILLED OR ACUTE. 5N CONSULTED. OT ASSESSED AND INDICATED PT WOULD BE A GOOD CANDIDATE FOR 5N. AWAITING PT EVALS. CM FOLLOWING REGARDING DC PLANNING.
[2021-05-16 16:42] VITALS: BP 137/96
[2021-05-16 21:18] VITALS: BP 169/99
[2021-05-17] VITALS: BP 167/105
--- NOTE | 2021-05-17 04:17 | NUR ---
patient aox4 makes needs known. patient had high blood pressure of 169/90, prn hydralizine give. patient is up at sue. patient is up on a recliner breathing regular and unlaboured.
[2021-05-17 06:09] VITALS: BP 147/91
[2021-05-17 07:20] VITALS: BP 142/67
[2021-05-17 08:33] LABS: ALBUMIN 2.8 g/dL (3.4-5.0); CALCIUM 9.2 mg/dL (8.5-10.1); CREATININE 11.8 mg/dL (0.6-1.0); PHOSPHORUS 4.9 mg/dL (2.6-4.7); POTASSIUM 3.2 mmol/L (3.5-5.1)
--- NOTE | 2021-05-17 11:25 | NUR ---
Patient A/O x4. Room air. AD JASON WITH WALKER. Cont of B/B. ac hs. Right chest tesao-dressing dry, clean and intact. Regular diet now. Has slight pain in hands. Renal panal completed today.
[2021-05-17 15:50] VITALS: BP 134/61
[2021-05-17 20:09] VITALS: BP 129/73
[2021-05-18 06:01] LABS: ALBUMIN 2.6 g/dL (3.4-5.0); CALCIUM 8.8 mg/dL (8.5-10.1); CREATININE 10.8 mg/dL (0.6-1.0); POTASSIUM 3.4 mmol/L (3.5-5.1)
--- NOTE | 2021-05-18 07:55 | NUR ---
Assumed pt care at 1900. A/OX4,pleasant. VSS.Denies pain on assessment. Up ad sue w/o RW w/o problems. ST on telemetry. Still has some slight bleeding with bowels/pee. Pt chose to sleep on recliner this shift stating its more comfortable.
--- NOTE | 2021-05-18 10:46 | NUR ---
A/O X 4. Room air. Stand by assist with walker. Uses bedside commode. Has right chest tesao double lumen. Left forearm IV Patent and dressing dry, clean and intact. No current complaints of pain.
[2021-05-18 16:00] VITALS: BP 155/87
[2021-05-18 18:39] VITALS: BP 143/79
[2021-05-19 04:53] LABS: HEMATOCRIT 21.9 % (37.0-47.0); HEMOGLOBIN 7.5 gm/dL (12.0-15.0); MCH 28.2 pg (26.0-34.0); MCHC 34.1 g/dL (28.0-37.0); MCV 82.8 fL (80.0-100.0); RBC 2.64 mil/uL (4.20-5.00); RDW 16.7 % (10.5-14.5); WBC 9.2 thou/uL (4.0-11.0)
[2021-05-19 05:00] VITALS: BP 144/82
[2021-05-19 05:07] LABS: INR 0.94; PROTIME 10.3 Seconds (10.5-12.1)
--- NOTE | 2021-05-19 05:49 | NUR ---
Assumed pt care at 1900. A/OX4,VSS.Denies pain on assessment.Continent of B&B with some slight bleeding noted to hemorrhoids. Up with SBA to BSC. Right IJ tesio in place. ST/SR on telemetry. Resting on the recliner w/o any distress noted,will continue to monitor pt.
[2021-05-19 07:37] VITALS: BP 157/79
[2021-05-19 08:02] LABS: ALBUMIN 2.6 g/dL (3.4-5.0); CALCIUM 8.9 mg/dL (8.5-10.1); CREATININE 9.9 mg/dL (0.6-1.0); PHOSPHORUS 5.1 mg/dL (2.6-4.7); POTASSIUM 3.4 mmol/L (3.5-5.1)
--- NOTE | 2021-05-19 12:18 | NUR ---
ASSUMED PT CARE THIS AM. PT A&OX4, ABLE TO MAKE NEEDS KNOWN. PATIENT REMAINS ON ROOM AIR. TESSIO PORT TO RIGHT IJ, NOT BEING USED. PATIENT REPORTS HAVING HEMMORHOIDS AT THIS TIME, REPORTS THE BLEEDING IS MINIMAL. PATIENT IS REPORTING NO PAIN, NUMBNESS, OR TINGLING. PATINET AMBULATORY TO BATHROOM. IV PATENT, SALINE LOCKED. FALL PRECAUTIONS ARE IN PLACE, CALL LIGHT WITHIN REACH.
--- NOTE | 2021-05-19 15:05 | HC ---
[facility] [place] [address] CONSULTATION Name: RONDA STORY Room #: 449-I ADM IN ..#: [id number] Admission: 05/06/21 Attend Phys: Hermann Weller MD Discharge: Date of : 56 Report #: [id number] THIS REPORT FOR: cc: Antonina Cortes MD, Karla L. MD Smithson, David G. MD ~ DATE OF SERVICE: 05/16/2021 HISTORY OF PRESENT ILLNESS: The patient is a 61-year-old -[place] female with history of rheumatoid arthritis, admitted with nausea, vomiting, diarrhea, abdominal pain. She was noted to have acute renal insufficiency with metabolic acidosis, acute tubular necrosis, dehydration as well as acute hepatic failure. She has underwent a kidney biopsy. There was a plan to have her go on dialysis, but she is gradually improving. Creatinine is remarkably high at 13.6, but has come down to 12.4. She is being monitored regarding her liver function tests. ALT reached a peak of over 4000 and is now down to 158. She has muscle aching and complaints of weakness, especially proximally. We are seeing her in rehabilitation medicine consultation. PAST MEDICAL HISTORY: Includes rheumatoid arthritis; history of pulmonary embolism, on Coumadin; hypertension; diabetes mellitus; gout. MEDICATIONS: Please see the above medication list. ALLERGIES: SULFA AND STRAWBERRY. SOCIAL HISTORY: Lives in an apartment. She does have 8-9 steps in, did not typically utilize gait aids. There is a daughter who lives in the same apartment complex, works out of her own apartment for the [employer] and could be of assistance for the patient. The patient herself has been retired. REVIEW OF SYSTEMS: Did not offer any current complaints of chest pain, shortness of breath or abdominal discomfort. She notes that the nausea is better. PHYSICAL EXAMINATION: GENERAL: A 61-year-old -[place] female, pleasant, in no obvious distress. VITAL SIGNS: Last recorded temperature 36.8, pulse 99, respirations 18, blood pressure 156/79. HEENT: Facies appeared symmetric. NEUROLOGIC: Functional range of motion of both upper extremities, strength is grade 3+ to 4-/5. DTRs are trace to 1. Lower extremities: She complains of muscle weakness proximally, would grade her strength at probably a grade 4- to 3+ distally. She is probably a 4- to 3+. DTRs are 1. [address] [address] CONSULTATION Name: ORNDA STORY Room #: 449-I [facility]#: [id number] Admission: 05/06/21 Attend Phys: Hermann Weller MD Discharge: Date of : 56 Report #: [id number] ASSESSMENT: A 61-year-old -[place] female with the following problem list: 1. Proximal lower extremity myopathy. 2. Acute hepatic failure. 3. Acute renal insufficiency with acute tubular necrosis, markedly elevated creatinine. 4. Episodes of hematemesis, resolved. 5. Hypertension. 6. Diabetes mellitus type 2. 7. Rheumatoid arthritis. PLAN: Therapies are to evaluate. She certainly may warrant a short acute in-hospital inpatient rehabilitation stay to further maximize her strength, endurance, independence and especially in light of the steps that she is getting in and the need to improve her overall endurance. Plus, she warrants continued monitoring of her acute tubular necrosis as well as her improving hepatic function. This could be followed with the multiple specialists in hospital inpatient rehabilitation clarke in the hospital. We will see how she does with her therapy evaluations and we will be glad to follow along with you. <ELECTRONICALLY SIGNED> By: Dago Poole MD 05/19/21 [id number] [id number] Dago Poole MD /nt
[2021-05-19 17:25] VITALS: BP 161/85
[2021-05-19 19:55] VITALS: BP 169/93
--- NOTE | 2021-05-20 05:12 | NUR ---
Assumed pt care at 1900. A/OX4,VSS. C/o nausea at shift change medicated with Compazine with relief reported. C/o tenderness on neck where crys is and is hoping to have it taken out today. A little bleeding noted after using the bathroom but much improved. Resting on the recliner w/o distress noted. ST on telemetry.
[2021-05-20 07:12] VITALS: BP 147/87
[2021-05-20 07:26] VITALS: BP 163/103
--- NOTE | 2021-05-20 10:56 | NUR ---
Assumed pt care this am, vs stable prefers to stay on the recliner. Diet and medications are tolerated well. No bleeding noted, awating renal panel to determine if temp cat for dialysis is to be removed as per nephrology. Pt verbalized that she would prefer to go home and have home health come vs rehab facility, CM aware. Poc followed with no signs or verbalizations of ditress noted. will monitor.
[2021-05-20 11:21] LABS: ALBUMIN 2.7 g/dL (3.4-5.0); CALCIUM 9.1 mg/dL (8.5-10.1); POTASSIUM 3.4 mmol/L (3.5-5.1)
[2021-05-20 11:22] LABS: CREATININE 8.7 mg/dL (0.6-1.0)
--- NOTE | 2021-05-20 11:22 | NUR ---
CM FOLLOWED UP WITH PT AT BEDSIDE THIS AM. SHE INDICATED THAT SHE IS INTERESTED IN GOING HOME INSTEAD OF FOR SKILLED POST ACUTE CARE STAY. PT SAW PT AND INDICATED SHE WOULD BE SAFE FOR HOME WITH HH. PT INDICATED NO PREFEREANCE FOR HH PROVIDER. [facility]. CARE TEAM INDICATED THAT WE WERE AWAITING RENAL PANEL LAB AND THEN LIKELY REMOVAL OF PT'S TEMP DIALYSIS CATHETER. THEY INDICATED POSSIBLE DC TODAY OR TOMORROW. CM FOLLOWING REGARDING DC PLANNING.
--- NOTE | 2021-05-20 14:03 | NUR ---
RIGHT IJ TEMP. DIALYSIS LINE REMOVED PER RENAL DOCTORS ORDER. DISCUSSED REMOVAL WITH THE PATIENT AND PATIENT RECLINED TO A LYING POSITION. SUTURES REMOVED AND SITE CLEANSED. THE PATIENT FOLLWED INSTRUCTIONS TO TAKE A DEEP BREATH AND BEARDOWN LINE WAS REMOVED. USING STERILE GAUZE PRESSURE WAS HELD X10MN AND AN OCCLUSIVE DRESSING WAS APPLIED. REQUESTED THE PATIENT NO LIFT OR BEAR DOWN FOR AN HOUR. DRESSING TO STAY ON SITE FOR AT LEAST 48 HOURS
[2021-05-20 15:32] VITALS: BP 147/87
[2021-05-20 16:31] VITALS: BP 158/92
--- NOTE | 2021-05-20 16:49 | NUR ---
PHYSICIAN INDICATED THAT PT WAS MEDICALLY STABLE TO DC HOME THIS DAY WITH HH SERVICES. CM FAXED ORDERS TO [facility]. TEMP DIALYSIS CATHETER WAS REMOVED. PT HAD TEMP THIS AFTERNOON. CM FOLLOWING PT MAY DC HOME THIS DAY OR MAY STAY FOR ANOTHER NIGHT OF MONITORING.
[2021-05-20 20:16] VITALS: BP 142/86
--- NOTE | 2021-05-20 22:14 | NUR ---
TEMP WNL. IV ACCESS DISCONTINUED. TELE REMOVED. PT LEFT UNIT AT 2150HRS ON WC IN STABLE CONDITION.
== END 2021-05-20 21:50 | disposition home health service (06) | DRG 682 ==
LOC: ER 01:32 → EROBS 03:40 → 3W 03:40 → 4W 05-09 14:13
PROVIDERS: Emergency Medicine; Hospitalist; Internal Medicine Gastroenterology; Internal Medicine Nephrology; Nurse Practitioner; Nurse Practitioner Family; ADMIT Internal Medicine; ATTEND Internal Medicine
PROC: 02HV33Z Insertion of Infusion Device into Superior Vena Cava, Percutaneous Approach (ICD-10-PCS; principal; 2021-05-13)
PROC: B5181ZA Fluoroscopy of Superior Vena Cava using Low Osmolar Contrast, Guidance (ICD-10-PCS; principal; 2021-05-13)
PROC: B548ZZA Ultrasonography of Superior Vena Cava, Guidance (ICD-10-PCS; principal; 2021-05-13)
PROC: 0TB13ZX Excision of Left Kidney, Percutaneous Approach, Diagnostic (ICD-10-PCS; principal; 2021-05-13)
DX: N17.0 Acute kidney failure with tubular necrosis (principal); K72.00 Acute and subacute hepatic failure without coma; K92.0 Hematemesis; E87.2 Acidosis; N39.0 Urinary tract infection, site not specified; D69.0 Allergic purpura; I10 Essential (primary) hypertension; K21.9 Gastro-esophageal reflux disease without esophagitis; E11.9 Type 2 diabetes mellitus without complications; M10.9 Gout, unspecified; E86.0 Dehydration; M06.9 Rheumatoid arthritis, unspecified; G72.89 Other specified myopathies; R74.01 Elevation of levels of liver transaminase levels; T38.3X5A Adverse effect of insulin and oral hypoglycemic [antidiabetic] drugs, initial encounter; Z20.822 Contact with and (suspected) exposure to COVID-19; B96.89 Other specified bacterial agents as the cause of diseases classified elsewhere; D64.9 Anemia, unspecified; Z79.899 Other long term (current) drug therapy; Z90.49 Acquired absence of other specified parts of digestive tract; Z86.711 Personal history of pulmonary embolism; Z88.2 Allergy status to sulfonamides; Y92.89 Other specified places as the place of occurrence of the external cause; Z91.02 Food additives allergy status; Z83.3 Family history of diabetes mellitus; Z82.49 Family history of ischemic heart disease and other diseases of the circulatory system
CPT/HCPCS: 10045; 10879

== ENCOUNTER → 2021-06-19 | Outpatient (CLI) | payer BC, OTHER ==
[~2021-06-19] MED LIST changes: +AMLODIPINE-VAL1 EAC3 PO; +HYDROCHLOROTH12.5 M2 PO; +JANTOVEN3 MG PO; +METFORMIN HCL500 M3 PO; +OZEMPIC0.25 MG/0. SUBQ
== END ==
LOC: BC 14:15
PROVIDERS: ATTEND Internal Medicine
DX: Z12.31 Encounter for screening mammogram for malignant neoplasm of breast (principal)